=== PATIENT | female | born 1985 ===

== ENCOUNTER 2025-04-17 14:00 | Day surgery (SDC) | payer OTHER ==
[2025-04-10 09:28] VITALS: BP 126/83
[2025-04-10 10:35] LABS: BASO % 0.8 % (0.1-1.2); EOS # 0.06 (0.04-0.54); EOS % 1.2 % (0.7-7.0); LYMPH # 1.79 (1.18-3.74); LYMPH % 36.8 % (19.3-53.1); MEAN PLATELET VOLUME 9.10 fl (9.4-12.4); MONO # 0.29 (0.24-0.82); MONO % 6.0 % (4.7-12.5); NEUT # 2.68 (1.56-6.13); NEUT % 55.0 % (34.0-71.1); RED CELL DISTRIBUTION WIDTH 13.9 % (11.6-14.4)
[2025-04-10 10:56] LABS: INR 1.03
[2025-04-10 11:23] LABS: ALT/SGPT 28.0 U/L (12-78); AST/SGOT 13.0 U/L (15-37); BILIRUBIN TOTAL 0.49 mg/dL (0.3-1.2); BUN CREA RATIO 21.0 (7.0-25.0); CREATININE SERUM 0.52 mg/dL (0.55-1.02); GFR 130.6; GLOBULINA 3.4 G/DL (2.4-3.5); GLUCOSE FASTING 90.0 mg/dL (65-100); OSMOLALITY SERUM 280.0 MOSM/KG (275-295)
[~2025-04-17] VITALS: Ht 152.4 cm; Wt 56.7 kg
[~2025-04-17 14:00] MED LIST: MULTIPLE VITAM1 EAC2 PO; PROBIOTIC250 MG PO
[2025-04-17] MEDS ORDERED: CHLORHEXIDINE GLUCONATE 120 ML BOTTLE TOP ONE (16:12)
[2025-04-17] MEDS ORDERED: POVIDONE-IODINE 118 ML BOTT TOP ONE ×2 (16:12→17:55)
[2025-04-17] MEDS ORDERED: IBU800 MG PO (18:15)
[2025-04-17] MEDS ORDERED: COLACE100 MG PO (18:15)
[2025-04-17] MEDS ORDERED: OXYCODONE HCL5 M1 PO (18:15)
[2025-04-17] MEDS ORDERED: SUGAMMADEX SODIUM 200 MG/2 ML VIAL IV ONE (19:11)
== END 2025-04-17 21:00 | disposition home or self-care (01) ==
LOC: CIR.AMB 14:00
PROVIDERS: ATTEND Student in an Organized Health Care Education/Training Program
DX: Z30.2 Encounter for sterilization (principal); N80.8 Other endometriosis; N80.33 Superficial endometriosis of the pelvic sidewall